=== PATIENT | female | born 1980 | race Caucasian/White ===

== ENCOUNTER 2018-07-17 07:57 | Emergency (ER) | payer OTHER ==
[~2018-07-17] VITALS: Ht 165.1 cm; Wt 67.1 kg
[2018-07-17 08:02] VITALS: BP 115/74
--- NOTE | 2018-07-17 08:08 | NUR ---
PT AMBULATES TO BED 3
--- NOTE | 2018-07-17 08:09 | NUR ---
BIB WITH C/O OF VOMITING X 3 THIS MORNING, + NAUSEA, + DIZZINESS, - DIARRHEA. PT STATES SEE FEELS LIKE SHE IS SPINNING. VSS; PATIENT POSITIONED FOR COMFORT; HOB ELEVATED; BEDRAILS UP X1; BED DOWN. ER MD MADE AWARE OF PT STATUS.
[2018-07-17] MEDS ORDERED: ONDANSETRON 4 MG ODT PO ONE (08:20)
[2018-07-17] MEDS ORDERED: ONDANSETRON 4 MG/2 ML VIAL IVP ONE (08:55)
[2018-07-17] MEDS ORDERED: NACL 0.9% 1,000 ML IV ONE (08:55)
[2018-07-17] MEDS ORDERED: PROMETHAZINE 25 MG/ML VIAL IVP ONE (10:25)
[2018-07-17] MEDS ORDERED: MECLIZINE 25 MG TAB PO ONE (11:20)
[2018-07-17 12:01] VITALS: BP 116/86
--- NOTE | 2018-07-23 12:04 | NUR ---
Late entry. Confirmed with RN that 1000 ml 0.9 NS IV was completed at 1000.
== END 2018-07-17 12:02 | disposition home or self-care (01) ==
LOC: MED 07:57
DX: R11.2 Nausea with vomiting, unspecified (principal); R42 Dizziness and giddiness
CPT/HCPCS: 81002; 81025; 96361; 96374; 96375; 99283; J2405; J2550; J7030; J8597; Q0162